=== PATIENT | female | born 1990 | race Native Hawaiian/Other Pacific Islander ===

== ENCOUNTER 2017-01-21 12:45 | Outpatient (CLI) | payer OTHER ==
[2017-01-21 14:33] LABS: PLATELET COUNT 200 K/uL (152-353)
[2017-01-21 15:07] LABS: POTASSIUM 3.7 mmol/L (3.6-5.2); SODIUM 139 mmol/L (136-145)
== END 2017-01-21 19:14 | disposition home or self-care (01) ==
LOC: LABW 12:45
PROVIDERS: Nurse Practitioner Family
DX: R59.0 Localized enlarged lymph nodes (principal)
CPT/HCPCS: 36415; 80053; 83516; 84439; 84443; 85027; 85651; 86039; 86225; 86235; 86618; 86644; 86645; 86663; 86664; 86665